=== PATIENT | female | born 1945 | race Caucasian/White ===

== ENCOUNTER 2020-11-14 18:58 | Emergency (ER) | payer OTHER, SELFPAY ==
[~2020-11-14 18:58] MED LIST: ADULT LOW DOSE81 MG PO; AUGMENTIN 875-1 EACH PO; BIOTIN5 M1 PO; COZAAR50 MG PO; ERYTHROMYCIN OP1 GM OP; FISH OIL + D31 EACH PO; FOSAMAX70 MG PO; LASIX20 MG PO; MULTIPLE VITAM1 EACH PO; NORCO 5-325 TA1 EACH PO; NORCO 7.5-3251 EACH PO; OMNICEF 300 MG300 MG PO; PREDNISONE20 MG PO; PROVENTIL HFA6.7 GM INH; ROBAXIN-750750 MG PO; TOPROL XL25 MG PO; ZOCOR40 MG PO
[2020-11-14] MEDS ORDERED: IBUPROFEN800 MG PO (20:46)
== END 2020-11-14 21:11 | disposition home or self-care (01) ==
LOC: ER1 18:58
DX: S20.212A Contusion of left front wall of thorax, initial encounter (principal); I11.9 Hypertensive heart disease without heart failure; W01.0XXA Fall on same level from slipping, tripping and stumbling without subsequent striking against object, initial encounter
CPT/HCPCS: 70450; 71111; 71250; 72125; 99284

== ENCOUNTER → 2021-05-18 | Outpatient (CLI) | payer OTHER ==
[~2021-05-18] MED LIST changes: +IBUPROFEN800 MG PO
== END ==
LOC: LBRF 14:54
DX: N39.0 Urinary tract infection, site not specified (principal)
CPT/HCPCS: 81001; 87086